=== PATIENT | male | born 1990 | race Caucasian/White ===

== ENCOUNTER 2021-09-04 17:14 | Outpatient (CLI) | payer OTHER, SELFPAY ==
--- NOTE | ~2021-09-04 | XR_ITS ---
EXAMINATION: XR knee LT 3V DATE: 09/04/2021 17:38 INDICATION: Left knee pain TECHNIQUE: AP, lateral and sunrise views of the left knee were obtained. COMPARISON: None. FINDINGS: Alignment is normal. No fracture. Joint spaces are normal. No left knee joint effusion. Prepatellar soft tissue swelling. IMPRESSION: 1. Prepatellar soft tissue swelling. Otherwise normal left knee radiographs. Reviewed, dictated and finalized at location A. ER OPERATOR
== END 2021-09-04 17:15 | disposition home or self-care (01) ==
LOC: ANHIMG 17:17
PROVIDERS: PCP Physician Assistant; Visit Provider Physician Assistant
DX: M25.562 Pain in left knee (principal); M79.89 Other specified soft tissue disorders
CPT/HCPCS: 73562

== ENCOUNTER 2021-11-09 08:25 | Outpatient (CLI) | payer OTHER, SELFPAY ==
[2021-11-09 08:51] LABS: Hematocrit 41.2 % (42.0-52.0); Hemoglobin 14.2 g/dL (14.0-18.0); Mean Corpuscular HGB Conc 34.5 g/dl (32-36); Mean Corpuscular Hemoglobin 29.5 pg (26-34); Mean Corpuscular Volume 85.5 fl (80-100); Mean Platelet Volume 10.4 fl (7.4-10.4); Platelet Count Result 213 k/mm3 (150-375); Red Blood Count 4.82 M/mm3 (4.6-6.20); Red Cell Distribution Width 11.8 % (11.5-14.5); White Blood Count 4.7 K/mm3 (4.5-10.0)
[2021-11-09 09:07] LABS: Alanine Aminotransferase 27 U/L (4-50); Albumin Level 4.8 g/dL (3.5-5.1); Alkaline Phosphatase 60 U/L (38-126); Anion Gap 9 mmol/L (8-16); Aspartate Amino Transferase 27 U/L (17-59); Bilirubin,Total 0.5 mg/dL (0.2-1.3); Blood Urea Nitrogen 18 mg/dL (9-20); Calcium 9.7 mg/dL (8.4-10.2); Carbon Dioxide 27 mmol/L (22-30); Chloride 104 mmol/L (98-107); Cholesterol 221 mg/dL (0-200); Estimated Glomerular Filt Rate > 60; Glucose 106 mg/dL (65-110); HDL Direct 43 mg/dL; Potassium 4.7 mmol/L (3.4-5.0); Sodium 140 mmol/L (137-145); Triglycerides 112 mg/dL (<150)
[2021-11-09 09:18] LABS: LDL Cholesterol Direct 157 mg/dL
[2021-11-09 10:58] LABS: Folic Acid > 20.0 ng/mL (2.76->20)
== END 2021-11-09 08:26 | disposition home or self-care (01) ==
PROVIDERS: PCP Physician Assistant; Visit Provider Physician Assistant
DX: Z00.00 Encounter for general adult medical examination without abnormal findings (principal)
CPT/HCPCS: 36415; 80053; 80061; 82607; 82746; 84443; 85027

== ENCOUNTER 2022-10-18 08:02 | Outpatient (CLI) | payer OTHER, SELFPAY ==
[2022-10-18 08:34] LABS: Cholesterol 218 mg/dL (0-200); HDL Direct 35 mg/dL; Triglycerides 145 mg/dL (<150)
[2022-10-18 08:45] LABS: LDL Cholesterol Direct 130 mg/dL
== END 2022-10-18 08:03 | disposition home or self-care (01) ==
LOC: ANHLAB 08:04
PROVIDERS: PCP Physician Assistant; Visit Provider Physician Assistant
DX: E78.5 Hyperlipidemia, unspecified (principal)
CPT/HCPCS: 36415; 80061

== ENCOUNTER 2022-10-23 16:53 | Outpatient (CLI) | payer OTHER, SELFPAY ==
--- NOTE | ~2022-10-23 | US_ITS ---
US scrotum doppler INDICATION: Palpable mass of the testes TECHNIQUE: Testicular sonogram utilizing grayscale and color Doppler FINDINGS: The testes are normal in size and appearance. No focal lesions are seen. The right testes measures 4.6 x 2.3 x 3.2 cm centimeters, and the left testis measures 4.9 x 2.2 x 2.6 cm cm. There is normal vascular flow to both testes. The right epididymis appear normal. Left epididymis is not visualized. Small right hydrocele. There is a left varicocele. IMPRESSION: 1. Left varicocele corresponds to palpable abnormality. 2: Small right hydrocele. Reviewed, dictated and finalized at location A. ANT SORTER
== END 2022-10-23 16:54 | disposition home or self-care (01) ==
LOC: ANHIMG 16:56
PROVIDERS: PCP Physician Assistant; Visit Provider Physician Assistant
DX: N50.89 Other specified disorders of the male genital organs (principal); N43.3 Hydrocele, unspecified
CPT/HCPCS: 76870; 93976

== ENCOUNTER 2024-11-30 14:35 | Outpatient (CLI) | payer OTHER, SELFPAY ==
--- NOTE | ~2024-11-30 | CT_ITS ---
EXAMINATION: CT soft tissue neck w con DATE: 11/30/2024 14:58 INDICATION: Localized enlarged lymph nodes. TECHNIQUE: Computed tomography (CT) of the neck was performed with 75 mL Omnipaque-350 intravenous co ntrast. Automated exposure control and iterative reconstruction technique were employed. The dose-angela gth product was 390.58 mGy-cm. COMPARISON: None FINDINGS: There are calcifications in the palatine tonsils bilaterally. The adenoids are enlarged. Th ere are no pathologically enlarged lymph nodes. The paranasal sinuses are clear. The mastoid air cell s are normal. There is mild cervical spondylosis. IMPRESSION: 1. No lymphadenopathy. 2. Enlarged adenoids. Reviewed, dictated and finalized at location A. ARE CASE WORKER
== END 2024-11-30 14:36 | disposition home or self-care (01) ==
LOC: MICIMG 14:36
PROVIDERS: PCP Physician Assistant; Visit Provider Physician Assistant
DX: R59.0 Localized enlarged lymph nodes (principal); J35.2 Hypertrophy of adenoids
CPT/HCPCS: 70491; Q9967

== ENCOUNTER 2025-09-06 13:17 | Emergency (ER) | payer OTHER, SELFPAY ==
--- NOTE | 2025-09-06 13:21 | ED_ITS ---
HPI - General Adult General Chief complaint: Skin/Abscess/Foreign Body Stated complaint: rash Time Seen by Provider: 09/06/25 13:18 Source: patient Mode of arrival: ambulatory Limitations: no limitations History of Present Illness HPI narrative: Pt is a 35 y/o male presenting with c/o pruritic rash to his back. Reports noticing rash over the weekend, shortly after hunting in [place]. 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 Voices concern as he reports there was a blister that 'popped' and has since turned black. NO additional complaints. Related Data Allergies Allergy/AdvReac Type Severity Reaction Status Date / Time No Known Allergies Allergy Verified 09/06/25 13:19 [facility] Past Medical History Medical History Allergies Asthma Family History Family History Mother Asthma Thyroid disorder Lupus Father Heart disease Social History Social History Smoking status: Never smoker Second hand tobacco smoke exposure: No Alcohol intake: current Substance use: unknown Lack of Transportation: No Lack of Food: Never True Current Housing: I Have Housing Concerned About Future Housing: No Difficulty Paying Gas/Electric Bills: No Difficulty Paying for Meds: No Currently Unemployed: No Education: Trade/Vocational Certificate Difficulty w/ Childcare or Family Care: No Exam Narrative: GENERAL: Well-appearing, well-nourished, and in no acute distress. HEAD: Normocephalic, atraumatic. EYES: EOMI. No redness or drainage. Conjunctivae normal. ENT: Mucous membranes pink and moist. NECK: Normal AROM. Supple. CHEST: No respiratory distress. HEART: Regular rate MUSCULOSKELETAL: No bony tenderness. EXTREMITIES: Normal range of motion. No edema. SKIN: Warm, dry, Capillary refill normal. Normal skin turgor. Clustered, erythematous, papular patchy eruptions scattered across eliecer. lumbar and thoracic regions without drainage or evidence of secondary bacterial skin infection. There is a 1 cm scab noted to the L. flank NEURO: No focal deficits. Alert and oriented x3. Gait steady. PSYCH: Normal affect. No signs of depression or anxiety. Course Course Level of Care: Express Care Visit Vital Signs Vital signs: Vital Signs Temperature 98.4 F 09/06/25 13:26 Pulse Rate 74 09/06/25 13:26 Respiratory Rate 16 09/06/25 13:26 Blood Pressure 161/97 H 09/06/25 13:26 Pulse Oximetry 98 09/06/25 13:26 Oxygen Delivery Room Air 09/06/25 13:26 Temperature 98.4 F 09/06/25 13:26 Pulse Rate 74 09/06/25 13:26 Respiratory Rate 16 09/06/25 13:26 Blood Pressure 161/97 H 09/06/25 13:26 Pulse Oximetry 98 09/06/25 13:26 Oxygen Delivery Room Air 09/06/25 13:26 Medical Decision Making MDM Narrative Medical decision making narrative: Discussed elevated blood pressure readings with patient and advised daily BP monitoring and f/u with PCP if persisting. Vital Signs Vital Signs: Vital Signs Temperature 98.4 F 09/06/25 13:26 Pulse Rate 74 09/06/25 13:26 Respiratory Rate 16 09/06/25 13:26 Blood Pressure 161/97 H 09/06/25 13:26 Pulse Oximetry 98 09/06/25 13:26 Oxygen Delivery Room Air 09/06/25 13:26 Temperature 98.4 F 09/06/25 13:26 Pulse Rate 74 09/06/25 13:26 Respiratory Rate 16 09/06/25 13:26 Blood Pressure 161/97 H 09/06/25 13:26 Pulse Oximetry 98 09/06/25 13:26 Oxygen Delivery Room Air 09/06/25 13:26 Discharge Plan Discharge Clinical Impression: Elevated blood pressure reading in office without diagnosis of hypertension Contact dermatitis Qualifiers: Contact dermatitis type: allergic Contact dermatitis trigger: non-food plants Qualified Code(s): L23.7 - Allergic contact dermatitis due to plants, except food Patient Disposition: Home Condition: Stable Instructions: Contact Dermatitis (ED) Additional Instructions: Go straight to ER should your symptoms become worse or should any new symptoms develop Patient Language: Montenegrin Prescriptions: New triamcinolone acetonide 0.025 % cream 1 applic topical TID Qty: 15 0RF Follow-up/Referrals: Kathe,DAE Avitia [Primary Care Provider, Unknown] - 09/07/25 Time of Disposition: 13:29
[2025-09-06 13:26] VITALS: BP 161/97; PULSE 74; RESP 16; TEMP 36.9; O2SAT 98
== END 2025-09-06 13:32 | disposition home or self-care (01) ==
PROVIDERS: Emergency Provider Registered Nurse; PCP Physician Assistant
DX: R03.0 Elevated blood-pressure reading, without diagnosis of hypertension (principal); L23.7 Allergic contact dermatitis due to plants, except food; J45.909 Unspecified asthma, uncomplicated
CPT/HCPCS: 99213; G0463

== ENCOUNTER 2025-09-10 10:15 | Emergency (ER) | payer OTHER, SELFPAY ==
--- NOTE | 2025-09-10 10:15 | ED_ITS ---
HPI - Skin/Abscess/Foreign Bdy General Chief complaint: Skin/Abscess/Foreign Body Stated complaint: Rash Time Seen by Provider: 09/10/25 10:15 Source: patient Mode of arrival: ambulatory Limitations: no limitations History of Present Illness HPI narrative: patient is a 35-year-old male who presents with rash to left side after coming back from a hunting trip. Patient was seen here 09/05 for similar rash but significantly smaller. Patient was given triamcinolone cream. Rash is now spread to bilateral arms and legs. Reports it is itching and not painful Related Data Allergies Allergy/AdvReac Type Severity Reaction Status Date / Time No Known Allergies Allergy Verified 09/10/25 10:16 Review of Systems 2 Review of Systems: All systems reviewed & are unremarkable except as noted in HPI and below Constitutional: Constitutional: Denies body ache(s), Denies chills, Denies fatigue, Denies fever(s), Denies headache(s), Denies malaise and Denies weakness Eyes: Eyes: Denies blurry vision, Denies irritation and Denies loss of vision ENT: Denies otalgia, Denies headache(s), Denies nasal discharge, Denies sinus pain and Denies sore throat Cardiovascular: Cardiovascular: Denies chest pain, Denies irregular heart rhythm and Denies dyspnea Respiratory: Respiratory: Denies dyspnea Gastrointestinal: Gastrointestinal: Denies abdominal pain, Denies melena, Denies hematochezia, Denies diarrhea, Denies nausea and Denies vomiting Musculoskeletal: Musculoskeletal: Denies back pain, Denies myalgias and Denies arthralgias Integumentary/Breasts: Skin/Breast: Reports pruritus and Reports rash Neurologic: Denies headache(s), Denies loss of vision and Denies weakness Psychiatric: Psychiatric: Reports no additional psychiatric complaints Endocrine: Endocrine: Denies fatigue PMFSH Past Medical History Medical History Asthma Allergies Family History Family History Mother Asthma Thyroid disorder Lupus Father Heart disease Social History Social History Smoking status: Never smoker Second hand tobacco smoke exposure: No Alcohol intake: current Substance use: unknown Lack of Transportation: No Lack of Food: Never True Current Housing: I Have Housing Concerned About Future Housing: No Difficulty Paying Gas/Electric Bills: No Difficulty Paying for Meds: No Currently Unemployed: No Education: Trade/Vocational Certificate Difficulty w/ Childcare or Family Care: No Comments At time of signature, agree with nursing past medical, surgical, social and family history. There is no relevant family history pertinent to the presenting complaint. Exam 2 Const: General: cooperative, healthy appearing, comfortable, no acute distress and well nourished Nutritional Appearance: well nourished O rientation/consciousness: patient oriented x3 Limitations: no limitations HENMT: Head: normal to inspection, normocephalic and atraumatic Ears: h earing grossly normal bilaterally and external ears normal Face/Nose/Sinus: N ormal external nose present, normal facial exam and face symmetric Face and sinus: normal facial exam and face symmetric Mouth: Yes lip normal Eyes: General: appearance normal, both eyes and all related structures A lignment and Position: alignment normal and position normal Periorbital: p eriorbital findings normal Eyelids: eyelids normal Pupils: Equal, round and reactive pupils present EOM: EOMs intact bilaterally Neck: Neck: normal visual inspection, full ROM and supple Chest: Chest palpation & inspection: normal inspection of the chest Resp: Effort & Inspection: normal respiratory effort and able to speak in complete sentences Auscultation: clear to auscultation bilaterally Cardio: Rate: regular rate Rhythm: regular rhythm Heart sounds: S1 normal heart sound present and S2 normal heart sound present GI: Inspection: normal to inspection Skin: General skin exam: normal color and no rashes or lesions noted Full body images: 1. 15 cm area of erythema, warmth that is raised and has waxy appearance Neuro: General: patient oriented x3 and moves all extremities Cranial nerves: Yes Equal, round and reactive pupils present Speech: normal speech Gait exam (Neuro): Normal gait present Extrem: General: normal to inspection, full ROM and no edema Psych: Appearance: grossly normal and well kempt Mental Status: mental status grossly normal Speech and movement: Normal speech and movement present Affect: normal affect Attitude: cooperative Thought process: Normal thought process present Course Course Emergency Course: Patient is aware of diagnosis, understands and agrees to treatment plan. Anticipatory guidance given. Patient agrees to follow-up as directed and is aware of reasons to seek care at the emergency department. Portions of this record may have been created with voice recognition software Level of Care: Express Care Visit Vital Signs Vital signs: Vital Signs Temperature 36.6 C 09/10/25 10:24 Pulse Rate 79 09/10/25 10:24 Respiratory Rate 18 09/10/25 10:24 Blood Pressure 136/74 09/10/25 10:24 Pulse Oximetry 98 09/10/25 10:24 Oxygen Delivery Room Air 09/10/25 10:24 Temperature 36.6 C 09/10/25 10:24 Pulse Rate 79 09/10/25 10:24 Respiratory Rate 18 09/10/25 10:24 Blood Pressure 136/74 09/10/25 10:24 Pulse Oximetry 98 09/10/25 10:24 Oxygen Delivery Room Air 09/10/25 10:24 Reviewed MDM - Skin/Abscess/Foreign Bdy MDM Narrative Medical decision making narrative: will treat patient with oral steroids since rash is growing significantly. Will also provide antibiotic prescription to add if symptoms not improving with just steroids Pt well hydrated appearing, in no respiratory distress, hemodynamically stable. Recommend supportive care. The patient is stable at time of discharge the clinical impression was discussed and the patient was given the opportunity to ask questions, which were addressed as completely as possible given the information available at present. Anticipatory guidance and return to care precautions were discussed and the importance of primary care follow-up was stressed and encouraged. The patient voiced understanding of the plan, indications to return, and the need for follow-up. Exam findings show no acute concerns or changes Patient is appropriate for outpatient treatment and follow-up. Differential Diagnosis Differential diagnosis: Likely abscess of skin or subcutaneous tissue, dermatophytosis, herpes zoster, cellulitis, insect bites, impetigo and contact dermatitis Medical Records Attestation: I reviewed the patient's medical records. Discharge Plan Discharge Clinical Impression: Contact dermatitis Qualifiers: Contact dermatitis type: allergic Contact dermatitis trigger: non-food plants Q ualified Code(s): L23.7 - Allergic contact dermatitis due to plants, except food Patient Disposition: Home Condition: Stable Instructions: Contact Dermatitis (ED) Additional Instructions: Take steroid in the morning with food. Take Claritin, Zyrtec or Constanza in the morning along with Benadryl at night. if symptoms are not improving in 3-5 days start taking antibiotic Wash the skin thoroughly with soap and cool water as soon as possible. Scrub under the fingernails with a brush to prevent spreading to other parts of the body by touching or scratching. For some people, adding oatmeal to a bath, applying cool wet compresses, and applying calamine lotion may help to relieve itching IF symptoms get worse to follow up with your primary care provider or seek ER visit if you developing difficulty breathing, weakness, dizziness Patient Language: Sinhala Prescriptions: New prednisone 10 mg tablet See Rx Instructions .ROUTE .COMPLEX Qty: 35 0RF Rx Instructions: 40 mg daily for 5 days, 20 mg daily for 5 days, 10 mg daily for 5 days cephalexin 500 mg capsule 500 mg PO QID 7 Days Qty: 28 0RF No Action triamcinolone acetonide 0.025 % cream 1 applic topical TID Qty: 15 0RF Follow-up/Referrals: Kathe,DAE Avitia [Primary Care Provider, Unknown] - 3 Days Time of Disposition: 10:31
[2025-09-10 10:24] VITALS: BP 136/74; PULSE 79; RESP 18; TEMP 36.6; O2SAT 98
== END 2025-09-10 10:35 | disposition home or self-care (01) ==
PROVIDERS: Emergency Provider Nurse Practitioner Family; PCP Physician Assistant
DX: L23.7 Allergic contact dermatitis due to plants, except food (principal); J45.909 Unspecified asthma, uncomplicated
CPT/HCPCS: 99213; G0463